=== PATIENT | female | born 1930 | race Caucasian/White ===

== ENCOUNTER 2016-08-20 12:24 | Day surgery (SDC) | payer MEDICARE, OTHER ==
[2014-12-27 12:08] VITALS: BP 131/48
--- NOTE | 2016-08-22 13:56 | GI Report ---
REFERRING PHYSICIAN: Dr. Darian Wyman TOOL DIE MAKER: Yash Boyce MD PROCEDURE MEDICATION: Propofol as per anesthesia. INDICATIONS: An 85-year-old woman who has had an esophageal stricture we had dilated in the past. Last dilatation was in December 2014. She says she is having food and pills stop again. She said she had a rash with a PPI so she did not tolerate that. So, she is not taking anything to block acid. She has stayed away from cold liquids. PROCEDURE PERFORMED: Endoscopy and esophageal dilatation. PROCEDURE: An Olympus video endoscope is passed into the esophagus without difficulty. 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 She also has a slight stricture at the GE junction. Cardia of the stomach has no masses. Fundus, body, and the antrum with atrophic gastritis. At the duodenal bulb, she does have some superficial ulcerations. A guidewire was placed in the stomach. The endoscope was removed and up to a 48 -Ecuadorean or 16 mm passed without difficulty. The endoscope was re-introduced. There was a little fresh blood at the GE junction where the stricture was dilated. Patient tolerated the procedure well. FINDINGS: 1. Esophageal stricture, dilated to a 48-Ecuadorean or 16 mm size. 2. 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 3. Atrophic gastritis. 4. Superficial ulceration in the duodenum. RECOMMENDATIONS: 1. If she cannot tolerate a PPI, would put her on an H2 brooks like Pepcid 20 mg at least before breakfast or the evening meal. Consider an antacid at bedtime, like Gaviscon. 2. Sleep with her bed elevated 3 or 4 inches up on boards or blocks. 3. Avoid cold liquids with meals. 4. Follow up with Dr. Wyman. cc: Dr. Darian HAZEL
== END 2016-08-20 12:25 ==
LOC: OPSURG 12:24
PROVIDERS: ATTEND Internal Medicine Gastroenterology
DX: K22.2 Esophageal obstruction (principal); K22.8 Other specified diseases of esophagus; K29.40 Chronic atrophic gastritis without bleeding; K26.9 Duodenal ulcer, unspecified as acute or chronic, without hemorrhage or perforation
CPT/HCPCS: J2704; J7120; 43248; S1016

== ENCOUNTER 2016-10-29 10:19 | Inpatient (IN) | payer MEDICARE, OTHER ==
[2016-10-29 17:44] VITALS: BMI 53.1
[2016-10-29] MEDS: LATANOPROST 0.005% OPTH DROP OP SCH ×2 (18:03→20:47)
[2016-10-29] MEDS: POLYETHYLENE GLYCOL 3350 17 GM POWD.PACK PO SCH (18:24)
[2016-10-29] MEDS: HYDROcodone /APAP 5/325 1 EACH TABLET PO PRN (18:29)
[2016-10-29] MEDS: ASPIRIN 325 MG TABLET PO SCH (20:46)
[2016-10-30 06:24] LABS: BASOPHILS % 0.4 (0.0-1.5); EOSINOPHILS % 4.7 % (0.0-6.8); MEAN CORPUSCULAR HEMOGLOBIN 29.8 pg (28.0-34.0); MEAN CORPUSCULAR VOLUME 87.4 fl (80.0-100.0); MONOCYTES % 6.2 % (0.0-11.0)
[2016-10-30 06:37] LABS: eGFR (African) > 60; eGFR (Non-African) > 60
[2016-10-30] MEDS: ASPIRIN 325 MG TABLET PO SCH ×2 (08:54→19:50)
[2016-10-30] MEDS: POLYETHYLENE GLYCOL 3350 17 GM POWD.PACK PO SCH (08:55)
--- NOTE | 2016-10-30 10:05 | History and Physical Report ---
CHIEF COMPLAINT: Status post left total knee replacement. HISTORY OF PRESENT ILLNESS: She initially had planned to have her left total knee replacement in October of 2015 but this had to be put off. She saw Dr. Rhodes in consultation who thought , with her CLL and non-Hodgkin's lymphoma being stable at this point, that it was okay to proceed with surgery. PAST MEDICAL HISTORY: 1. History of non-Hodgkin's lymphoma. 2. Glaucoma. 3. Colonic polyps. 4. History of cervical cancer. 5. Osteoarthritis. 6. Kidney stones. 7. Chronic lymphocytic leukemia. 8. 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 PAST SURGICAL HISTORY: 1. Partial colectomy done laparoscopically. 2. Left breast excision for breast cancer. 3. Appendectomy. 4. Partial abdominal hysterectomy for cervical cancer. 5. Basket procedure for renal lithiasis. 6. Open cholecystectomy. 7. Right total knee replacement done March 16, 2005. CURRENT MEDICATIONS: 1. Latanoprost 1 drop in both eyes at bedtime. 2. Pepcid 20 mg p.o. b.i.d. ALLERGIES: 1. Sulfa. 2. Adhesive. 3. Trimethoprim. SOCIAL HISTORY: She is single. Retired. She drinks socially. She is active in the [facility] at the hospital. She does not smoke. She does tend to the floyd out front. FAMILY HISTORY: Noncontributory. REVIEW OF SYSTEMS: She is not having any fever, chills, nausea or vomiting. She does have some left knee pain. Pedal edema is markedly improved. Her pain is also better postoperatively than it was preoperatively. She is not having any chest pain. PHYSICAL EXAMINATION: General: This is a pleasant, alert, and oriented 86-year-old female who looks significantly younger than her stated age. HEENT: Shows her head to be normocephalic and atraumatic. She does have her own dentition. She has had significant dental work. She has seborrheic keratosis noted on her scalp and most of her skin. Neck: No JVD is noted. Lungs: Clear. Heart: Her heart is in a regular rhythm. Breast Exam: Her left breast is surgically absent. Abdomen: Soft. No guarding. No rebound. Extremities: Warm and well perfused. She has a large anterior knee scar from her total knee replacement. It is well approximated with benjamin. It is not really draining any significant amount. There is no surrounding erythema. She has about 1+ edema at bilateral lower extremities. She is wearing RICHY hose at this time. ASSESSMENT: 1. Status post left total knee replacement with an unremarkable postoperative course. 2. History of non-Hodgkin's lymphoma. 3. History of chronic lymphocytic leukemia. 4. Moderate thrombocytopenia according to records received from [facility]. 5. Mild leukopenia, which is a change for her. Certainly, we will need to follow that. 6. Remote history of breast cancer. 7. Remote history of colon cancer. PLAN: 1. She is admitted. 2. CPM will be applied as recommended by Dr. Fitzpatrick. 3. At this point, Dr. Fitzpatrick has recommended 325 mg b.i.d. of aspirin for DVT prophylaxis. We will also do RICHY hose. 4. The plan will be for her to go home on discharge. We did continue her on her MiraLAX and her Xalatan as prior to admission. 5. Physical therapy and occupational therapy have already seen her this afternoon and will continue to do therapy with her. YASEMIN
[2016-10-30] MEDS: HYDROcodone /APAP 5/325 1 EACH TABLET PO PRN ×3 (10:14→21:48)
[2016-10-30] MEDS: LATANOPROST 0.005% OPTH DROP OP SCH (19:51)
[2016-10-31] MEDS: HYDROcodone /APAP 5/325 1 EACH TABLET PO PRN ×4 (04:00→23:00)
[2016-10-31] MEDS: ASPIRIN 325 MG TABLET PO SCH ×2 (09:24→20:37)
[2016-10-31] MEDS: POLYETHYLENE GLYCOL 3350 17 GM POWD.PACK PO SCH (16:02)
[2016-10-31] MEDS: LATANOPROST 0.005% OPTH DROP OP SCH (20:35)
[2016-11-01] MEDS: HYDROcodone /APAP 5/325 1 EACH TABLET PO PRN ×3 (05:46→17:51)
[2016-11-01] MEDS: ASPIRIN 325 MG TABLET PO SCH ×2 (09:15→20:35)
[2016-11-01] MEDS: POLYETHYLENE GLYCOL 3350 17 GM POWD.PACK PO SCH (10:01)
[2016-11-01] MEDS: LATANOPROST 0.005% OPTH DROP OP SCH (20:35)
[2016-11-02] MEDS: HYDROcodone /APAP 5/325 1 EACH TABLET PO PRN ×5 (00:27→21:59)
[2016-11-02] MEDS: ASPIRIN 325 MG TABLET PO SCH ×2 (08:14→20:51)
--- NOTE | 2016-11-02 08:30 | Inpatient Progress Note ---
Subjective - Required Recertification Statement I anticipate X number of days because-include discharge plan: 7 - Review of Systems Events since last encounter: García is doing remarkably well. Her pain is fairly well controlled. She does have some nausea, however that is improving. General: Denies: Chills, Night Sweats HEENT: Denies: Head Aches Pulmonary: Denies: Dyspnea, Cough Cardiovascular: Denies: Chest Pain Gastrointestinal: Nausea Genitourinary: Dysuria Musculoskeletal: Denies: Neck Pain Neurological: Denies: Weakness, Numbness Objective - Exam Vitals and I&O: Vital Signs Temp 97.6 F 11/01/16 21:00 Pulse 106 H 11/01/16 21:00 Resp 18 11/01/16 21:00 BP 149/62 11/01/16 21:00 Pulse Ox 95 11/01/16 21:00 Intake & Output 11/01/16 11/01/16 11/02/16 11:59 23:59 11:59 Intake Total 300 258 6136 Balance 419 932 0584 Intake: Oral 873 618 1978 Other: Voiding Method Toilet Toilet # Voids 3 3 5 General: Alert, Oriented to Person, Oriented to Place, Oriented to Time HEENT: Atraumatic, PERRLA Neck: Supple, No JVD Lungs: Clear to auscultation Cardiovascular: Regular rate Abdomen: Normal bowel sounds Extremities: Other (wound is without any drainage) Neurological: Normal speech Psych/Mental Status: Mental status NL - Results Results: Laboratory Results WBC 2.60 K/ul (4.00-12.00) L 10/30/16 06:05 RBC 2.85 M/ul (3.90-5.20) L 10/30/16 06:05 Hgb 8.5 g/dL (12.0-16.0) L 10/30/16 06:05 Hct 24.9 % (34.5-46.5) L 10/30/16 06:05 MCV 87.4 fl (80.0-100.0) 10/30/16 06:05 MCH 29.8 pg (28.0-34.0) 10/30/16 06:05 MCHC 34.1 g/dL (30.0-36.0) 10/30/16 06:05 RDW 14.1 % (11.3-14.3) 10/30/16 06:05 Plt Count 113 K/mm3 (130-400) L 10/30/16 06:05 Neut % (Auto) 76.0 % (39.0-79.0) 10/30/16 06:05 Lymph % (Auto) 11.7 % (16.0-50.0) L 10/30/16 06:05 Brewster % (Auto) 6.2 % (0.0-11.0) 10/30/16 06:05 Eos % (Auto) 4.7 % (0.0-6.8) 10/30/16 06:05 Baso % (Auto) 0.4 (0.0-1.5) 10/30/16 06:05 Neut # (Auto) 2.0 # k/uL (1.4-7.7) 10/30/16 06:05 Lymph # (Auto) 0.3 # k/uL (0.6-4.0) L 10/30/16 06:05 Brewster # (Auto) 0.2 # k/uL (0.0-0.9) 10/30/16 06:05 Eos # (Auto) 0.1 # k/uL (0.0-0.6) 10/30/16 06:05 Baso # (Auto) 0.0 # k/uL (0.0-0.5) 10/30/16 06:05 Reactive Lymphs % 1.0 % (0.0-5.0) 10/30/16 06:05 Reactive Lymphs # 0.0 # k/uL (0.0-0.8) 10/30/16 06:05 Sodium 143 mmol/L (136-145) 10/30/16 06:05 Potassium 3.7 mmol/L (3.5-5.0) 10/30/16 06:05 Chloride 107 mmol/L (98-110) 10/30/16 06:05 Carbon Dioxide 30 mmol/L (20-32) 10/30/16 06:05 BUN 13 mg/dL (10-26) 10/30/16 06:05 Creatinine 0.4 mg/dL (0.4-1.5) 10/30/16 06:05 Estimated Creat Clear 279 10/30/16 06:05 Est GFR ( Amer) > 60 (60-) 10/30/16 06:05 Est GFR (Non-Af Amer) > 60 (60-) 10/30/16 06:05 Glucose 91 mg/dL (70-99) 10/30/16 06:05 Calcium 10.0 mg/dL (8.5-10.5) 10/30/16 06:05 Total Bilirubin 0.9 mg/dL (0.2-1.2) 10/30/16 06:05 AST 12 U/L (0-41) 10/30/16 06:05 ALT 12 U/L (0-45) 10/30/16 06:05 Alkaline Phosphatase 57 U/L (46-116) 10/30/16 06:05 Total Protein 5.7 g/dL (6.0-8.5) L 10/30/16 06:05 Albumin 3.6 g/dL (3.0-5.5) 10/30/16 06:05 Assessment/Plan - Assessment/Plan (1) Status post left knee replacement Status: Acute Current Visit: Yes Assessment: Bart well postoperatively Plan: Continue therapy (2) Chronic lymphocytic leukemia Status: Acute Current Visit: Yes Assessment: Chronic/stable (3) Anemia Status: Acute Current Visit: Yes Assessment: Last hemoglobin stable at 8.5
[2016-11-02] MEDS ORDERED: ACETAMINOPHEN 325 MG TABLET PO PRN (09:10)
[2016-11-02] MEDS: POLYETHYLENE GLYCOL 3350 17 GM POWD.PACK PO SCH (10:47)
[2016-11-02] MEDS: LATANOPROST 0.005% OPTH DROP OP SCH (20:52)
[2016-11-03] MEDS: HYDROcodone /APAP 5/325 1 EACH TABLET PO PRN ×4 (05:22→21:29)
[2016-11-03] MEDS: ASPIRIN 325 MG TABLET PO SCH ×2 (10:15→20:19)
[2016-11-03] MEDS: POLYETHYLENE GLYCOL 3350 17 GM POWD.PACK PO SCH (11:12)
[2016-11-03] MEDS: LATANOPROST 0.005% OPTH DROP OP SCH (20:19)
[2016-11-04] MEDS: HYDROcodone /APAP 5/325 1 EACH TABLET PO PRN ×4 (05:50→23:12)
[2016-11-04] MEDS: ASPIRIN 325 MG TABLET PO SCH ×2 (10:10→20:09)
[2016-11-04] MEDS: POLYETHYLENE GLYCOL 3350 17 GM POWD.PACK PO SCH (11:27)
[2016-11-04] MEDS: LATANOPROST 0.005% OPTH DROP OP SCH (20:10)
[2016-11-05] MEDS: HYDROcodone /APAP 5/325 1 EACH TABLET PO PRN ×4 (05:34→22:54)
[2016-11-05] MEDS: POLYETHYLENE GLYCOL 3350 17 GM POWD.PACK PO SCH (08:34)
[2016-11-05] MEDS: ASPIRIN 325 MG TABLET PO SCH ×2 (08:35→20:52)
[2016-11-05] MEDS: LATANOPROST 0.005% OPTH DROP OP SCH (20:52)
[2016-11-06] MEDS: HYDROcodone /APAP 5/325 1 EACH TABLET PO PRN ×5 (05:15→21:59)
[2016-11-06] MEDS: ASPIRIN 325 MG TABLET PO SCH ×2 (09:11→20:25)
--- NOTE | 2016-11-06 10:27 | Inpatient Progress Note ---
Subjective - Required Recertification Statement I anticipate X number of days because-include discharge plan: 10 - Review of Systems Events since last encounter: García is doing well. She is walking better and doing well with the stairs in therapy. She is having a home visit today. She says that she is is planning a home visit today with therapy at 11:00. General: Denies: Chills, Night Sweats HEENT: Denies: Head Aches, Visual Changes Pulmonary: Denies: Dyspnea, Cough Cardiovascular: Denies: Chest Pain Gastrointestinal: Denies: Nausea, Vomiting Genitourinary: Denies: Dysuria, Frequency Musculoskeletal: Leg Pain (left knee). Denies: Neck Pain Neurological: Confusion (Subjective, but not borne out by exam) Objective - Exam Vitals and I&O: Vital Signs Temp 98.3 F 11/06/16 09:00 Pulse 124 H 11/06/16 09:00 Resp 20 11/06/16 09:00 BP 105/67 11/06/16 09:00 Pulse Ox 97 11/06/16 09:00 Intake & Output 11/05/16 11/05/16 11/06/16 11:59 23:59 11:59 Intake Total 600 920 240 Balance 600 920 240 Weight 66.224 kg Intake: Oral 600 920 240 Other: Voiding Method Toilet Toilet # Voids 5 3 General: Alert, Oriented to Person, Oriented to Place, Oriented to Time HEENT: Atraumatic, PERRLA Neck: Supple Lungs: No: Respiratory Distress Cardiovascular: Regular rate Abdomen: Normal bowel sounds Extremities: No clubbing, No cyanosis, Other (Left knee has minimal drainage) Neurological: No: Normal gait, Normal speech Psych/Mental Status: Mental status NL - Results Results: Laboratory Results WBC 2.60 K/ul (4.00-12.00) L 10/30/16 06:05 RBC 2.85 M/ul (3.90-5.20) L 10/30/16 06:05 Hgb 8.5 g/dL (12.0-16.0) L 10/30/16 06:05 Hct 24.9 % (34.5-46.5) L 10/30/16 06:05 MCV 87.4 fl (80.0-100.0) 10/30/16 06:05 MCH 29.8 pg (28.0-34.0) 10/30/16 06:05 MCHC 34.1 g/dL (30.0-36.0) 10/30/16 06:05 RDW 14.1 % (11.3-14.3) 10/30/16 06:05 Plt Count 113 K/mm3 (130-400) L 10/30/16 06:05 Neut % (Auto) 76.0 % (39.0-79.0) 10/30/16 06:05 Lymph % (Auto) 11.7 % (16.0-50.0) L 10/30/16 06:05 Floyd % (Auto) 6.2 % (0.0-11.0) 10/30/16 06:05 Eos % (Auto) 4.7 % (0.0-6.8) 10/30/16 06:05 Baso % (Auto) 0.4 (0.0-1.5) 10/30/16 06:05 Neut # (Auto) 2.0 # k/uL (1.4-7.7) 10/30/16 06:05 Lymph # (Auto) 0.3 # k/uL (0.6-4.0) L 10/30/16 06:05 Floyd # (Auto) 0.2 # k/uL (0.0-0.9) 10/30/16 06:05 Eos # (Auto) 0.1 # k/uL (0.0-0.6) 10/30/16 06:05 Baso # (Auto) 0.0 # k/uL (0.0-0.5) 10/30/16 06:05 Reactive Lymphs % 1.0 % (0.0-5.0) 10/30/16 06:05 Reactive Lymphs # 0.0 # k/uL (0.0-0.8) 10/30/16 06:05 Sodium 143 mmol/L (136-145) 10/30/16 06:05 Potassium 3.7 mmol/L (3.5-5.0) 10/30/16 06:05 Chloride 107 mmol/L (98-110) 10/30/16 06:05 Carbon Dioxide 30 mmol/L (20-32) 10/30/16 06:05 BUN 13 mg/dL (10-26) 10/30/16 06:05 Creatinine 0.4 mg/dL (0.4-1.5) 10/30/16 06:05 Estimated Creat Clear 279 10/30/16 06:05 Est GFR ( Amer) > 60 (60-) 10/30/16 06:05 Est GFR (Non-Af Amer) > 60 (60-) 10/30/16 06:05 Glucose 91 mg/dL (70-99) 10/30/16 06:05 Calcium 10.0 mg/dL (8.5-10.5) 10/30/16 06:05 Total Bilirubin 0.9 mg/dL (0.2-1.2) 10/30/16 06:05 AST 12 U/L (0-41) 10/30/16 06:05 ALT 12 U/L (0-45) 10/30/16 06:05 Alkaline Phosphatase 57 U/L (46-116) 10/30/16 06:05 Total Protein 5.7 g/dL (6.0-8.5) L 10/30/16 06:05 Albumin 3.6 g/dL (3.0-5.5) 10/30/16 06:05 Assessment/Plan - Assessment/Plan (1) Status post left knee replacement Status: Acute Current Visit: Yes Assessment: Doing well with therapy (2) Chronic lymphocytic leukemia Status: Acute Current Visit: Yes Assessment: Stable/chronic (3) Anemia Status: Acute Current Visit: Yes Assessment: Check CBC tomorrow am
[2016-11-06] MEDS: POLYETHYLENE GLYCOL 3350 17 GM POWD.PACK PO SCH (12:09)
[2016-11-06] MEDS: LATANOPROST 0.005% OPTH DROP OP SCH (20:28)
[2016-11-07] MEDS: HYDROcodone /APAP 5/325 1 EACH TABLET PO PRN ×4 (05:52→22:24)
[2016-11-07 06:20] LABS: MEAN CORPUSCULAR HEMOGLOBIN 29.3 pg (28.0-34.0); MEAN CORPUSCULAR VOLUME 87.8 fl (80.0-100.0)
[2016-11-07 06:37] LABS: eGFR (African) > 60; eGFR (Non-African) > 60
[2016-11-07] MEDS: ASPIRIN 325 MG TABLET PO SCH ×2 (10:02→20:23)
[2016-11-07] MEDS: POLYETHYLENE GLYCOL 3350 17 GM POWD.PACK PO SCH (12:19)
[2016-11-07] MEDS: LATANOPROST 0.005% OPTH DROP OP SCH (20:26)
[2016-11-08] MEDS: HYDROcodone /APAP 5/325 1 EACH TABLET PO PRN ×4 (05:46→22:01)
[2016-11-08] MEDS: ASPIRIN 325 MG TABLET PO SCH ×2 (08:31→20:40)
[2016-11-08] MEDS: POLYETHYLENE GLYCOL 3350 17 GM POWD.PACK PO SCH (12:03)
[2016-11-08] MEDS: LATANOPROST 0.005% OPTH DROP OP SCH (20:40)
[2016-11-09] MEDS: HYDROcodone /APAP 5/325 1 EACH TABLET PO PRN ×2 (05:56→15:28)
[2016-11-09] MEDS: ASPIRIN 325 MG TABLET PO SCH (08:59)
[2016-11-09 10:24] VITALS: BP 103/67
[2016-11-09] MEDS: POLYETHYLENE GLYCOL 3350 17 GM POWD.PACK PO SCH (11:37)
--- NOTE | 2016-12-05 15:31 | Discharge Summary ---
DATE OF ADMISSION: October 29, 2016 DATE OF DISCHARGE: November 09, 2016 DIAGNOSES ON THIS HOSPITALIZATION: 1. Status post left total knee replacement with an uncomplicated postoperative course. 2. History of non-Hodgkin's lymphoma. 3. History of chronic lymphocytic leukemia. 4. Thrombocytopenia. SUMMARIZATION OF ADMISSION HISTORY AND PHYSICAL: This is an 87-year-old female who had a left total knee replacement done 2 days prior to arrival at our facility. Her postoperative course had been unremarkable. She had seen Dr. Rhodes, her oncologist/engraver tender, in consultation prior to having surgery. She had a left total knee replacement in [facility] and after that she was transferred to our facility for ongoing therapy. HOSPITAL COURSE: She was admitted to our facility and occupational and physical therapy were undertaken. They did use a CPM especially the first week or so that she was here. She was discharged to [facility] for continued outpatient therapy on the day of discharge in markedly improved condition with continuation of all of her current medications which are basically, Latanoprost 0.05%, 1 drop in both eyes at bedtime and Pepcid 20 mg b.i.d. MTDD
== END 2016-11-09 15:40 | DRG 566 ==
LOC: SOUTH 10:19 → UNDOADMIN 12:01 → ICF 11-09 15:25 → UNDOADMIN 11-09 15:25 → UNDODISIN 11-09 15:40
PROVIDERS: ADMIT Family Medicine; ATTEND Family Medicine
DX: Z96.652 Presence of left artificial knee joint (principal); R26.89 Other abnormalities of gait and mobility; D69.6 Thrombocytopenia, unspecified; Z85.72 Personal history of non-Hodgkin lymphomas; Z85.6 Personal history of leukemia; Z85.038 Personal history of other malignant neoplasm of large intestine; Z85.3 Personal history of malignant neoplasm of breast
CPT/HCPCS: 36415; 80053; 85025; 85027; A9270; A9270-GY

== ENCOUNTER 2016-11-09 15:25 | Inpatient (IN) | payer SELFPAY ==
[2016-11-09 10:24] VITALS: BP 103/67
== END 2016-11-22 11:50 | disposition home or self-care (01) | DRG 884 ==
LOC: ICF 15:25
PROVIDERS: ADMIT Family Medicine; ATTEND Family Medicine
DX: R54 Age-related physical debility (principal)

== ENCOUNTER 2016-11-13 13:55 | Outpatient (CLI) | payer MEDICARE, OTHER ==
--- NOTE | 2016-11-13 15:03 | Diagnostic Imaging Report ---
BRIT TEIXEIRA/SONJA [facility] [address] [facility] [address] [address] Report Submission Date: Nov 13, 2016 2:58:43 PM CDT Patient Study Name: FRANCIA LYMAN Date: Nov 13, 2016 2:23:12 PM CDT Modality Type: CR Gender: F Description: UPPER EXTREMITY : 30 Institution: [facility] Physician: BRIT TEIXEIRA/SONJA Examination: Plain film hand History: Hand discomfort Comparison exams: None available Findings: 3 views the hand demonstrates diffuse osteopenia. Extensive phalangeal articular degenerative changes. Significant carpal bone degenerative changes with resorption. Widening of the scapholunate space. Erosive changes involving the base of the 4th and 5th metacarpals. No displaced fracture line. Lateral view demonstrates phalangeal posterior angulation. Impression: Advanced arthritic changes. Regions of bone resorption. No overt fracture line. Electronically signed on Nov 13, 2016 2:58:43 PM CDT by: Jacek HAZEL
--- NOTE | 2016-11-13 15:03 | Diagnostic Imaging Report ---
BRIT TEIXEIRA/SONJA [facility] [address] [facility] [address] [address] Report Submission Date: Nov 13, 2016 3:01:17 PM CDT Patient Study Name: FRANCIA LYMAN Date: Nov 13, 2016 2:26:35 PM CDT Modality Type: CR Gender: F Description: UPPER EXTREMITY : 30 Institution: [facility] Physician: BRIT TEIXEIRA/SONJA Examination: Plain film wrist History: Wrist discomfort Comparison exams: None available Findings: 3 views the wrist demonstrates diffuse osteopenia. Significant carpal bone degenerative changes with resorption. Advanced degenerative changes involving the 1st carpal metacarpal articulation. Widening of the scapholunate space measuring 8 mm. Degenerative changes involving the base of the 4th and 5th metacarpals. Impression: Advanced arthritic degenerative changes. No overt fracture line. Electronically signed on Nov 13, 2016 3:01:17 PM CDT by: Jacek AHZEL
== END 2016-11-13 13:56 ==
LOC: RAD 13:55
PROVIDERS: ATTEND Family Medicine
DX: M79.642 Pain in left hand (principal); M79.641 Pain in right hand
CPT/HCPCS: 73110; 73130

== ENCOUNTER 2016-11-14 13:15 | Outpatient (CLI) | payer MEDICARE, OTHER ==
--- NOTE | 2016-11-14 21:32 | Diagnostic Imaging Report ---
BRIT TEIXEIRA/SONJA [facility] [address] [facility] [address] [place], [place]. [address] Report Submission Date: Nov 14, 2016 2:25:41 PM CDT Patient Study Name: FRANCIA LYMAN Date: Nov 14, 2016 1:40:07 PM CDT Modality Type: CT\SR Gender: F Description: CT BRAIN W/O CONTRAST : 30 Institution: [facility] Physician: BRIT TEIXEIRA/SONJA Examination: CT head without contrast History: Weakness Comparison exam: None available Technique: Noncontrast head CT protocol. Findings: Ventricles and sulci are prominent, though consistent for patient age. Cerebrocerebellar parenchyma demonstrates significant periventricular low attenuation consistent with small vessel disease. No evidence for parenchymal hemorrhage. No evidence for mass or mass effect. No midline shift. No extra axial fluid collections. Partial visualization of the paranasal sinuses, mastoid air cells, orbits, skull and scalp without gross regularity. Streak artifact from dental hardware. Impression: Advanced age related changes. No acute parenchymal process. No hemorrhage. Consider obtaining MRI brain to further evaluate if clinically warranted. Electronically signed on Nov 14, 2016 2:25:41 PM CDT by: Jacek HAZEL
== END 2016-11-14 13:16 ==
LOC: RAD 13:15
PROVIDERS: ATTEND Family Medicine
DX: R20.0 Anesthesia of skin (principal)
CPT/HCPCS: 70450

== ENCOUNTER 2017-02-05 13:19 | Outpatient (CLI) | payer MEDICARE, OTHER | END 2017-02-05 13:20 | LOC: POD 13:19 | PROVIDERS: ATTEND Podiatrist | DX: B35.1 Tinea unguium (principal); M79.674 Pain in right toe(s); M79.675 Pain in left toe(s) | CPT/HCPCS: 11721; G0463 ==

== ENCOUNTER 2017-05-07 13:16 | Outpatient (CLI) | payer MEDICARE, OTHER | END 2017-05-07 13:30 | LOC: POD 13:16 | PROVIDERS: ATTEND Podiatrist | DX: B35.1 Tinea unguium (principal); M79.674 Pain in right toe(s); M79.675 Pain in left toe(s) | CPT/HCPCS: 11721; G0463 ==

== ENCOUNTER 2017-08-09 12:59 | Outpatient (CLI) | payer MEDICARE, OTHER | END 2017-08-09 13:00 | LOC: POD 12:59 | PROVIDERS: ATTEND Podiatrist | DX: B35.1 Tinea unguium (principal); M79.674 Pain in right toe(s); M79.675 Pain in left toe(s) | CPT/HCPCS: 11721; G0463 ==

== ENCOUNTER 2017-10-28 14:05 | Emergency (ER) | payer MEDICARE, OTHER ==
--- NOTE | 2017-10-28 14:20 | ED Physician Documentation ---
General Adult - HISTORIAN Historian: patient - HPI Stated Complaint: epistaxis Chief Complaint: General Adult Onset: hours Timing: still present Severity: moderate Further Comments: yes (Pt is an 87 yo female with epistaxis. 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.) - ROS CONST: no problems EYES/ENT: other (nose bleed, R nares) CVS/RESP: none GI/: none MS/SKIN/LYMPH: none - PAST HX Past History: other (Hx Non-Hodkins Lymphoma; Hx Chronic Lymphocytic Leukemia; Hx Cervical Cancer; Hx Breast Cancer; Glaucoma; Colonic Polyps; OA; Kidney Stones; DJD L knee.) Surgeries/Procedures: other (Partial Colectomy; L breast excision for breast cancer; Appendectomy; Partial Hysterectomy for Cervical Cancer; R knee replacement; Cholecystectomy.) Allergies/Adverse Reactions: Allergies Allergy/AdvReac Type Severity Reaction Status Date / Time sulfamethoxazole Allergy Intermediate RASHG Verified 10/28/17 14:32 [From Bactrim] adhesive Allergy Mild Rash Verified 10/28/17 14:32 trimethoprim [From Bactrim] Allergy RASHG Verified 10/28/17 14:32 Home Medications: Ambulatory Orders Medication Instructions Recorded Latanoprost 1 drop EACHEYE DAILY 09/28/13 - SOCIAL HX Smoking History: non-smoker - FAMILY HX Family History: No (unk) - VITAL SIGNS Vital Signs: Vital Signs Temp Pulse Resp BP Pulse Ox 103/67 11/09/16 09:00 - REVIEWED ASSESSMENTS Nursing Assessment Reviewed: Yes Vitals Reviewed: Yes Progress - Progress Progress: Afrin spray in ER bleeding stopped d/c instructions: Afrin (oxymetazoline) nasal spray. One or two sprays as needed for minor nose bleed. Maximum of 6 to 8 sprays per nostril per day. Return to ER if bleeding recurs and cannot be easily controlled, or if you have concerns. General Adult Physical Exam - PHYSICAL EXAM GENERAL APPEARANCE: mild distress EENT: pharynx normal (no blood seen in nasopharynx) NECK: normal inspection, supple RESPIRATORY: no resp distress, breath sounds normal CVS: reg rate & rhythm, heart sounds normal BACK: normal inspection SKIN: warm/dry, normal color EXTREMITIES: non-tender, normal range of motion, no evidence of injury NEURO: oriented X3, motor nml, sensation nml Discharge Clincal Impression: Epistaxis Referrals: Darian Wyman MD [Primary Care Provider] - Condition: Good Disposition: 01 HOME, SELF-CARE Decision to Admit: NO Decision Time: 15:15
[2017-10-28 14:24] VITALS: BP 147/65
[2017-10-28] MEDS ORDERED: OXYMETAZOLINE HCL 0.05% NASAL SPRAY NS ONE (14:24)
[2017-10-28 15:00] LABS: BASOPHILS % 0.6 (0.0-1.5); EOSINOPHILS % 1.5 % (0.0-6.8); MEAN CORPUSCULAR HEMOGLOBIN 29.3 pg (28.0-34.0); MONOCYTES % 6.3 % (0.0-11.0); NEUTROPHILS # 2.2 # k/uL (1.4-7.7)
== END 2017-10-28 15:37 | disposition home or self-care (01) ==
LOC: ED 14:05
DX: R04.0 Epistaxis (principal)
CPT/HCPCS: 85025; 85610; 85730; 99282

== ENCOUNTER 2017-12-25 12:42 | Outpatient (CLI) | payer MEDICARE, OTHER ==
--- NOTE | 2017-12-26 10:03 | OP Clinic Progress Note ---
REASON FOR VISIT: This 87-year-old lady presents with a right-sided epistaxis. She was seen in the emergency room. She has a history of several variety of different of cancers. She has had chemotherapy. Her tongue has gotten quite dry lately in addition. Under the microscope, I can see a punctate area of bleeding about 1.5 cm posterior to the columellar margin. Patient was very tolerant and I cauterized that with silver nitrate. An antibiotic cotton pack was placed over this. PLAN: I explained to her using an antibiotic cotton ball covering that acts essentially like a Band-Aid and she will do that for 2 weeks with additional instructions given. Again, the patient is extremely tolerant. I will see her back in 2 weeks. cc: Dr. Darian HAZEL
== END 2017-12-25 14:31 ==
LOC: ENT 12:42
PROVIDERS: ATTEND Otolaryngology
DX: R04.0 Epistaxis (principal)
CPT/HCPCS: G0463

== ENCOUNTER 2018-01-29 14:08 | Outpatient (CLI) | payer MEDICARE, OTHER ==
--- NOTE | 2018-01-30 15:19 | OP Clinic Progress Note ---
REASON FOR VISIT: García is seen in follow up of cautery of a right-sided epistaxis. She has done a good job of keeping the antibiotic ointment in the nose. There has been no residual bleeding. The site of the cautery is well healed. She remains with a fairly marked right nasal septal deviation. I would not tend to do anything with this particularly at her age. PLAN: I have encouraged her to use some [id number] antibiotic ointment in her nostrils, particularly over the dry winter and she is very amenable to that. She is to return to the care of Dr. Wyman. cc: Dr. Darian HAZEL
== END 2018-01-29 14:10 ==
LOC: ENT 14:08
PROVIDERS: ATTEND Otolaryngology
DX: Z09 Encounter for follow-up examination after completed treatment for conditions other than malignant neoplasm (principal)
CPT/HCPCS: G0463

== ENCOUNTER 2018-10-24 18:29 | Outpatient (CLI) | payer MEDICARE, OTHER ==
[2018-10-24 18:32] LABS: BASOPHILS % 0.3 % (0.0-1.5)
[2018-10-24 18:33] LABS: eGFR (Non-African) > 60
== END 2018-10-24 18:31 ==
LOC: LABRHC 18:29
PROVIDERS: ATTEND Family Medicine
DX: C91.90 Lymphoid leukemia, unspecified not having achieved remission (principal)
CPT/HCPCS: 80053; 85025

== ENCOUNTER 2018-12-02 17:00 | Outpatient (CLI) | payer MEDICARE, OTHER ==
--- NOTE | 2018-12-15 15:02 | Diagnostic Imaging Report ---
LUCA TRAYLOR [facility] [address] [facility].[address] [address] Report Submission Date: Dec 02, 2018 5:48:52 PM CDT Patient Study Name: FRANCIA LYMAN Date: Dec 02, 2018 5:07:20 PM CDT Modality Type: DX Gender: F Description: TOES 2 VIEWS OR MORE : 30 Institution: [facility] Physician: LUCA TRAYLOR Examination: Plain film right toes History: RIGHT HALLUX PAIN AFTER FALL Findings: 3 views of the right 1st digit demonstrates osteopenia. Hallux valgus deformity. Articular degenerative changes. No displaced fracture lucency. Impression: Osteopenia and degenerative changes. Hallux valgus deformity. No acute appearing cortical abnormality. Electronically signed on Dec 02, 2018 5:48:52 PM CDT by: Jacek HAZEL
== END 2018-12-02 17:10 ==
LOC: RAD 17:00
PROVIDERS: ATTEND Podiatrist Foot & Ankle Surgery
DX: S99.921A Unspecified injury of right foot, initial encounter (principal); X58.XXXA Exposure to other specified factors, initial encounter
CPT/HCPCS: 73660

== ENCOUNTER 2018-12-04 12:35 | Outpatient (CLI) | payer MEDICARE, OTHER ==
--- NOTE | 2018-12-17 11:19 | OP Clinic Progress Note ---
DATE OF VISIT: 12/04/2018 SUBJECTIVE: García is presenting today for a right hallux ulcer. She bumped it earlier this week on she believes a nightstand causing some bruising and x-rays were obtained, which were reviewed today as being negative for any sign of fracture or dislocation. The patient has been doing dressings at home. She has been doing antibiotic ointment, Neosporin, I believe, and gauze wraps as she cannot do adhesive on the skin daily. She does not admit to any fevers, chills, nausea, vomiting, shortness of breath or chest pain. She is here for followup of that ulcer and right foot pain from running her foot into a nightstand. OBJECTIVE: Vitals: Temperature 97.9 degrees Fahrenheit, heart rate 83, respiration rate 18, blood pressure 162/82. O2 saturation is 95% on room air. Vascular: 2+ DP and 1+ PT pulses, right foot. Capillary refill time is less than 3 seconds to the toes of the right foot. There is mild edema still noted about the right first toe area. Dermatologic: There is still mild ecchymosis noted about the first and second toes but it is less than a couple of days ago when we saw her. There is still an open somewhat superficial lesion noted over the dorsal first toe, right foot. This did not need any sort of debridement. The edges were slightly macerated. There is no purulence or malodor noted. There is no erythema noted. Musculoskeletal: There is some pain on palpation of the right dorsal first toe ulcer. There is significant hallux valgus deformity as well right foot. There are no other gross abnormalities noted of concern. Neurologic: Light touch sensation is intact to the toes, right foot. ASSESSMENT AND PLAN: 1. Right hallux ulcer. 2. Right foot pain. We discussed that the toe is looking much better at this time. She may have sustained just a contusion or possible ligament or tendon injury. I did not see any sort of acute tear or rupture of any tendon or ligament at this time. We will continue to treat the local wound and we will have her continue daily dressing changes and washing it and applying antibiotic ointment or Band-Aid daily. She will return to the clinic in two weeks for followup, sooner if needed. Again we reviewed the x-rays with the patient that they were negative today. We also obtained the phone number of the woman with her today so that we can call her if needed for any issues with scheduling. Arturo Mcdaniel D.P.M.(Dictated/not signed) /[employer] [id number] /mab MTDD
== END 2018-12-04 13:35 ==
LOC: POD 12:35
PROVIDERS: ATTEND Podiatrist Foot & Ankle Surgery
DX: L97.519 Non-pressure chronic ulcer of other part of right foot with unspecified severity (principal)
CPT/HCPCS: 99213; G0463; A4554

== ENCOUNTER 2018-12-18 12:40 | Outpatient (CLI) | payer MEDICARE, OTHER ==
--- NOTE | 2018-12-26 12:35 | OP Clinic Progress Note ---
DATE OF VISIT: 12/18/2018 SUBJECTIVE: García is an 88-year-old female presenting to the clinic today for followup of right hallux ulcer that was superficial. She has been dressing it daily and is no longer having pain. She does not admit to any other concerns. She would like to resume regular toenail trimming as often as allowed. She does not admit to any other pain or issues nor any fevers, chills, nausea, vomiting, shortness of breath or chest pain. OBJECTIVE: Vitals: Temperature 98.5 degrees Fahrenheit, heart rate 87, respiration rate 16, blood pressure 139/86. O2 saturation is 96% on room air. Vascular: Palpable DP and PT pulses, right foot. Capillary refill time is less than 3 seconds to the toes of the right foot. There is no edema noted, right foot. Dermatologic: The right great toe previous superficial ulcer over the dorsal aspect of the toe has completely healed at this time. There is no open lesion, erythema or drainage of any kind noted. There are no other concerning areas of the skin of the right foot at this time. Musculoskeletal: There was no pain on palpation nor warmth with palpation. There are no other gross abnormalities of concern noted right foot. Neurologic: Light touch sensation is intact to the toes, right foot. ASSESSMENT AND PLAN: 1. Right hallux ulcer (superficial) - healed. Everything is looking great and I am okay with the patient soaking her foot at her request and question today. She has no other issues and would like to continue toenail trimming every 10 to 12 weeks as often as allowed. We did toenails two weeks ago and therefore we will have her return to clinic in two months at the [facility] for toenail trimming and then resume every 10 weeks after that in the health clinic. She is grateful for the care she has received and looks forward to her next visit. Arturo Mcdaniel D.P.M. (Dictated/not signed) /[employer] [id number] /mab MTDD
== END 2018-12-18 13:00 ==
LOC: POD 12:40
PROVIDERS: ATTEND Podiatrist Foot & Ankle Surgery
DX: L97.519 Non-pressure chronic ulcer of other part of right foot with unspecified severity (principal)
CPT/HCPCS: 99212; G0463

== ENCOUNTER 2018-12-22 10:06 | Day surgery (SDC) | payer MEDICARE, OTHER ==
[~2018-12-22 10:06] MED LIST: LACTATED RINGERS 1,000 ML IV.SOLN IV ONE; LIDOCAINE HCL 2% PF 100MG/5ML VIAL IJ ONE; PROPOFOL 200 MG/20 ML VIAL IV ONE
--- NOTE | 2018-12-26 12:49 | GI Report ---
DATE OF PROCEDURE: 12/22/2018 REFERRING PHYSICIAN: Dr. Wyman. PROCEDURE PERFORMED: Endoscopy, dilatation. SURGEON: Jeanne Deng M.D., [place] INDICATION FOR PROCEDURE: The patient had an esophageal stricture last dilated back in 2017. She had 6 months of chemotherapy. She has chronic lymphocytic leukemia. She is starting to have more trouble swallowing again and comes for endoscopy and dilatation. PROCEDURE MEDICATION: Per Anesthesia. PROCEDURE PERFORMED: Endoscopy, esophageal dilatation. SURGEON: Jeanne Deng M.D., [place] DESCRIPTION OF PROCEDURE: An Olympus video endoscope was passed through the esophagus under direct visualization. She has a dilated esophagus consistent with a presbyesophagus and a slight stricture at the GE junction. The cardia of the stomach shows no mass. She does have a hiatal hernia and kind of atrophic gastritis. The pylorus is open. The duodenal bulb is normal. A guidewire was placed in the stomach, and the endoscope removed, and up to a 15 mm which is a #45 Spanish was passed with just slight resistance. We stopped at that point. The endoscope was reintroduced. There was a little bleeding where the stricture was stretched, but not active bleeding. The patient tolerated the procedure well. FINDINGS: 1. Esophageal stricture, dilated to a #45 Spanish, or 15 mm. 2. 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 RECOMMENDATIONS: 1. Just a full liquid diet today. 2. She needs to remain on a PPI once a day before either breakfast or supper. 3. Sleep with her head elevated about 2-3 inches. 4. Do not eat late at night. 5. Take an antacid at bedtime. 6. Avoid cold liquids when she is taking her pills or meals. JEANNE DENG M.D., [place]. Mary Jane Job#: [id number] Cc: [facility]. Wyman. [facility]
== END 2018-12-22 12:00 | disposition home or self-care (01) ==
LOC: OPSURG 10:06
PROVIDERS: ATTEND Internal Medicine Gastroenterology
DX: K22.2 Esophageal obstruction (principal); K22.8 Other specified diseases of esophagus; K29.70 Gastritis, unspecified, without bleeding; K44.9 Diaphragmatic hernia without obstruction or gangrene
CPT/HCPCS: 43248; J2001; J2704; J7120